=== PATIENT | male | born 1940 | race Caucasian/White ===

== ENCOUNTER 2018-01-16 05:06 | Outpatient (CLI) | payer MEDICARE, OTHER ==
[~2018-01-16 05:06] MED LIST: AMLO2.5T2 PO; CARV-50 PO; CHOL200012; CLON0.1T PO; MULT-1085 PO; SIMV20TA5 PO
== END 2018-01-16 23:59 | disposition home or self-care (01) ==
LOC: DIABETIC 05:06
PROVIDERS: ATTEND Internal Medicine Critical Care Medicine
DX: E11.22 Type 2 diabetes mellitus with diabetic chronic kidney disease (principal); Z71.3 Dietary counseling and surveillance
CPT/HCPCS: G0108

== ENCOUNTER 2020-02-28 15:31 | Emergency (ER) | payer MEDICARE, OTHER ==
[~2020-02-28] VITALS: Ht 180.3 cm; Wt 93.7 kg
[~2020-02-28 15:31] MED LIST changes: +SIMV-42 PO; -SIMV20TA5 PO
[2020-02-28] MEDS ORDERED: TETanus/Pertussis (Acell)/Diphther VAC/PF (Tdap-Adult) 0.5ml syringe IMVAC ONE (17:45)
[2020-02-28 17:46] VITALS: BP 188/97
[2020-02-28] MEDS ORDERED: LIDOcaine 1% W/epiNEPHrine 1:200,000 10ml vial IJ STA (18:04)
[2020-02-28] MEDS ORDERED: LIDOcaine 1% w/epiNEPHrine 1:200,000 30ml vial ONE (18:11)
[2020-02-28] MEDS ORDERED: HYDR-3965 PO (19:58)
[2020-02-28] MEDS ORDERED: DOXY100C2 PO (19:58)
== END 2020-02-28 20:25 | disposition home or self-care (01) ==
LOC: ER 15:33
DX: S62.634B Displaced fracture of distal phalanx of right ring finger, initial encounter for open fracture (principal); S61.412A Laceration without foreign body of left hand, initial encounter; I10 Essential (primary) hypertension; M06.9 Rheumatoid arthritis, unspecified; Z98.890 Other specified postprocedural states; Z88.0 Allergy status to penicillin; Z79.899 Other long term (current) drug therapy; X58.XXXA Exposure to other specified factors, initial encounter; Y93.89 Activity, other specified; Y92.89 Other specified places as the place of occurrence of the external cause; Y99.8 Other external cause status
CPT/HCPCS: 12004; 73130; 90471; 90715; 99283

== ENCOUNTER 2020-09-13 07:38 | Day surgery (SDC) | payer MEDICARE, OTHER ==
[~2020-09-13] VITALS: Ht 180.3 cm; Wt 93.4 kg
[2020-09-13] MEDS ORDERED: NIFE90TA44 PO (08:17)
[2020-09-13] MEDS ORDERED: ACET-2615 PO (08:17)
[2020-09-13 08:58] LABS: BLOOD UREA NITROGEN 32 MG/DL (7-18); CREATININE 2.66 MG/DL (0.60-1.10); eGFR 23 ML/MIN
[2020-09-13 09:09] VITALS: BP 122/56
[2020-09-13] MEDS: sodium bicarbonate (8.4%) inj. 75 MEQ in dextrose 5% water 500ml 500 ML IV SCH (09:58)
[2020-09-13] MEDS ORDERED: pneumococcal 23-VAL P-sac vacc 25 mcg/0.5ml vial IMVAC ONE (10:25)
[2020-09-13] MEDS ORDERED: iohexol 350 MG/ML 50ML vial IV ONE (11:01)
[2020-09-13] MEDS ORDERED: iohexol 350MG/ML 100ml bottle IV ONE (11:02)
[2020-09-13 16:45] VITALS: BP 142/79
== END 2020-09-13 16:45 | disposition home or self-care (01) ==
LOC: SSTAY O 07:38 → EDSTATUS 09:00 → SSTAY O 16:45
PROVIDERS: ATTEND Surgery
DX: I71.4 Abdominal aortic aneurysm, without rupture (principal); N28.89 Other specified disorders of kidney and ureter; I77.1 Stricture of artery; I70.203 Unspecified atherosclerosis of native arteries of extremities, bilateral legs; Z23 Encounter for immunization
CPT/HCPCS: 36415; 75635; 82565; 84520; 90732; G0009; Q9967

== ENCOUNTER 2023-01-10 14:10 | Emergency (ER) | payer MEDICARE, OTHER ==
[~2023-01-10] VITALS: Ht 180.3 cm; Wt 105.0 kg
[~2023-01-10 14:10] MED LIST changes: +ACET-2615 PO; -AMLO2.5T2 PO; -CHOL200012; -MULT-1085 PO; +NIFE90TA70 PO
[2023-01-10 14:12] VITALS: BP 170/77; PULSE 65; RESP 18; TEMP 97.8; O2SAT 98
[2023-01-10] MEDS ORDERED: LIDOcaine 1.5% w/epinephrine 1:200,000 5ml ampul IJ ONE (15:10)
[2023-01-10] MEDS ORDERED: TETanus/Pertussis (Acell)/Diphther VAC/PF (Tdap-Adult) 0.5ml syringe IMVAC ONE (15:10)
[2023-01-10] MEDS ORDERED: LIDOcaine 1% W/epiNEPHrine 1:100,000 20ml vial SQ ONE (15:15)
== END 2023-01-10 16:38 | disposition home or self-care (01) ==
LOC: ER 14:11
DX: S01.112A Laceration without foreign body of left eyelid and periocular area, initial encounter (principal); W29.3XXA Contact with powered garden and outdoor hand tools and machinery, initial encounter; Y93.89 Activity, other specified; Y92.89 Other specified places as the place of occurrence of the external cause; Y99.8 Other external cause status
CPT/HCPCS: 12011; 90471; 90715; 99283; A6258; A6449

== ENCOUNTER 2023-12-19 08:37 | Emergency (ER) | payer MEDICARE, OTHER ==
[~2023-12-19] VITALS: Ht 180.3 cm; Wt 90.7 kg
[2023-12-19 08:46] VITALS: TEMP 97.8
[2023-12-19] MEDS: LidoCAINE 2% Topical Jelly 11mL syringe (UROJET) TOP ONE (09:24)
[2023-12-19 11:00] VITALS: BP 191/89; PULSE 68; RESP 16; O2SAT 95
[2023-12-24] MEDS ORDERED: tamsulosin capsule PO (09:52)
[2023-12-24] MEDS ORDERED: COR3.125T PO (09:52)
[2023-12-24] MEDS ORDERED: CIPR-259 PO (09:52)
== END 2023-12-19 11:10 | disposition home or self-care (01) ==
LOC: ER 08:38
DX: R33.9 Retention of urine, unspecified (principal); I10 Essential (primary) hypertension; Z88.0 Allergy status to penicillin; Z79.1 Long term (current) use of non-steroidal anti-inflammatories (NSAID); Z79.899 Other long term (current) drug therapy; Z98.890 Other specified postprocedural states
CPT/HCPCS: 51702; 99284; A4314